=== PATIENT | female | born 2005 | race Hispanic/Latino ===

== ENCOUNTER 2024-05-20 08:39 | Emergency (ER) | payer BC ==
[2024-05-20] MEDS ORDERED: Acetaminophen 500 MG TAB ONE (09:17)
[2024-05-20] MEDS ORDERED: Ibuprofen 200 MG TAB ONE (09:54)
== END 2024-05-20 10:03 | disposition home or self-care (01) ==
LOC: CSHERS 08:39
DX: M54.89 Other dorsalgia (principal); Z55.0 Illiteracy and low-level literacy
CPT/HCPCS: 71046; 93005